=== PATIENT | female | born 1990 | race Caucasian/White ===

== ENCOUNTER 2018-02-11 06:02 | Day surgery (SDC) | payer OTHER ==
[~2018-02-11 06:02] MED LIST: CEFAZOLIN 1 GM/50 ML (PMX) 50 ML IVPB; SOD CHLORIDE 0.9% 1,000 ML IV
[2018-02-11] MEDS ORDERED: MIDAZOLAM 1 MG/ML 2 ML INJ (06:52)
[2018-02-11] MEDS ORDERED: FENTAnyl 50 MCG/ML VIAL (06:52)
[2018-02-11] MEDS ORDERED: ROCURONIUM 50 MG INJ (06:52)
[2018-02-11] MEDS ORDERED: PROPOFOL 20 ML (06:52)
[2018-02-11] MEDS ORDERED: GLYCOPYRROLATE 0.4 MG INJ (06:52)
[2018-02-11] MEDS ORDERED: NEOSTIGMINE 3 MG/3 ML SYRINGE (06:52)
[2018-02-11] MEDS ORDERED: DEXAMETHASONE 4 MG/ML 1 ML INJ (06:53)
[2018-02-11] MEDS ORDERED: ONDANSETRON 4 MG INJ (06:53)
[2018-02-11] MEDS ORDERED: hydrALAzine 20 MG INJ IV (07:00)
[2018-02-11] MEDS ORDERED: EPHEDrine SULFATE 50 MG/5 ML SYG IV (07:00)
[2018-02-11] MEDS ORDERED: OXYCODONE/ACETAMINOPHEN (5/325) TAB PO ×2 (07:00)
[2018-02-11] MEDS ORDERED: HYDROmorphONE (0.2 MG/ML) 10ML SYG IV ×3 (07:00)
[2018-02-11] MEDS ORDERED: MEPERIDINE 25 MG INJ IV (07:00)
[2018-02-11] MEDS ORDERED: LABETALOL HCL 20MG INJ IV (07:00)
[2018-02-11] MEDS ORDERED: DIPHENHYDRAMINE 50 MG INJ IV (07:00)
[2018-02-11] MEDS ORDERED: MIDAZOLAM 1 MG/ML 2 ML INJ IV (07:00)
[2018-02-11] MEDS ORDERED: ONDANSETRON 4 MG INJ IV (07:00)
[2018-02-11] MEDS ORDERED: morphine (1 MG/ML) 10ML SYRINGE IV ×3 (07:00)
[2018-02-11] MEDS ORDERED: FENTAnyl 50 MCG/ML VIAL IV ×2 (07:00)
[2018-02-11] MEDS ORDERED: ATROPINE 1 MG/10 ML SYRINGE IV (07:00)
[2018-02-11] MEDS ORDERED: BUPIVACAINE 0.25% (MPF) 30 ML INJ (08:02)
[2018-02-11] MEDS ORDERED: BUPIVACAINE 0.25%/EPI (MDV) 50 ML VIAL INJ (08:02)
[2018-02-11] MEDS: BUPIVACAINE 0.5%/EPI (SDV) 30 ML INJ (09:10)
[2018-02-11] MEDS: NEOMYC/POLYMYX/BACIT 30 GM OINT (09:11)
== END 2018-02-11 10:10 | disposition home or self-care (01) ==
LOC: SDS 06:02
DX: D22.4 Melanocytic nevi of scalp and neck (principal)
CPT/HCPCS: 11424; 88307